=== PATIENT | male | born 1930 | race Caucasian/White ===

== ENCOUNTER 2017-04-04 08:30 | Outpatient (CLI) | payer MEDICARE ==
[2017-04-04 09:49] LABS: Hemoglobin 13.3 g/dL (14.0-18.0); Mean Corpuscular HGB CONC 33.2 g/dL (32.0-36.0); Mean Corpuscular Hemoglobin 33.4 pg (27.0-31.0); Mean Platelet Volume 8.3 fL (7.4-10.4); Platelet Count 180 thou/uL (130-400); RBC Distribution Width 11.6 % (11.5-14.5); Red Blood Cell (RBC) Count 3.99 mill/uL (4.70-6.10)
[2017-04-04 10:03] LABS: INR-International Normal Ratio 1.1; PTT 31.7 SEC (22.9-36.1)
[2017-04-04 10:09] LABS: ALT (SGPT) 16 U/L (8-55); AST (SGOT) 18 U/L (5-34); Albumin 3.8 g/dL (3.4-4.8); Alkaline Phosphatase 76 U/L (40-150); Anion Gap 13 mmol/L (10-20); BUN (Urea Nitrogen) 28 mg/dL (8.4-25.7); Bilirubin, Total 0.7 mg/dL (0.2-1.2); Calc. Creatinine Clearance 0 mL/min (70-130); Calcium 8.7 mg/dL (7.8-10.44); Carbon Dioxide 23 mmol/L (23-31); Chloride 102 mmol/L (98-107); Estimated GFR-MDRD 76; Globulin 2.3 g/dL (2.4-3.5); Glucose 101 mg/dL (83-110); Potassium 5.1 mmol/L (3.5-5.1); Protein, Total 6.1 g/dL (5.8-8.1); Sodium 133 mmol/L (136-145)
--- NOTE | 2017-04-05 07:17 | EKG ---
Test Reason : Blood Pressure : / mmHG Vent. Rate : 063 BPM Atrial Rate : 063 BPM P-R Int : 226 ms QRS Dur : 112 ms QT Int : 414 ms P-R-T Axes : 069 -57 044 degrees QTc Int : 423 ms Sinus rhythm with 1st degree A-V block Left anterior fascicular block Abnormal ECG When compared with ECG of 18-MAY-2015 13:43, No significant change was found Confirmed by MISTI MINA, DR. SCarrie ([id number]) on 04/05/2017 7:16:59 AM Referred By: NAIMA Confirmed By:DR. Tj CHAPPELL MD
== END 2017-04-04 08:31 | disposition home or self-care (01) ==
LOC: LABBT 08:30
PROVIDERS: ATTEND Internal Medicine Cardiovascular Disease
DX: Z01.810 Encounter for preprocedural cardiovascular examination (principal); R07.9 Chest pain, unspecified
CPT/HCPCS: 80053; 85027; 85610; 85730; 93005; 93010

== ENCOUNTER → 2017-04-08 | Day surgery (SDC) | payer MEDICARE ==
[2017-04-04 08:56] VITALS: BMI 27.4
[~2017-04-08] MED LIST: Diazepam 5 MG TAB ONE; Heparin 0 ML ONE; Promethazine 25 MG TAB ONE; Sodium Chloride 0.9% 1,000 ML IV SCH
[2017-04-08 07:10] LABS: Cardiac Risk 2.6 (Less than 4.5)
== END ==
LOC: CCL 05:55
PROVIDERS: ATTEND Internal Medicine Cardiovascular Disease
DX: R07.89 Other chest pain (principal); I25.10 Atherosclerotic heart disease of native coronary artery without angina pectoris; G47.30 Sleep apnea, unspecified; I48.1 Persistent atrial fibrillation; I10 Essential (primary) hypertension; Z99.89 Dependence on other enabling machines and devices; Z90.49 Acquired absence of other specified parts of digestive tract; Z98.890 Other specified postprocedural states
CPT/HCPCS: 76942; 80061; 93455; 93567; C1769; J1644

== ENCOUNTER 2017-09-18 13:23 | Emergency (ER) | payer MEDICARE ==
[2017-09-18] MEDS ORDERED: Bacitracin Zinc 1 Packet ONE (14:04)
--- NOTE | 2017-09-18 14:09 | CT ---
CT BRAIN WITHOUT CONTRAST: Comparison: None. History: Fall. Head trauma. Tripped over a dog at home. Patient had no severe trauma to the forehead. Technique: Multiple contiguous axial images were obtained in a CT of the brain without contrast. FINDINGS: The brain is normal in morphology and attenuation without focal lesions or confluent areas of infarct ion. There is no evidence of hydrocephalus, intracranial hemorrhage or extraaxial fluid collection. Soft tissue swelling is seen in the right frontal scalp. The underlying calvarium is unremarkable. Th e visualized paranasal sinuses and mastoid air cells are well aerated. IMPRESSION: No evidence of acute intracranial abnormality. POS: [facility]
== END 2017-09-18 14:12 | disposition home or self-care (01) ==
LOC: SCSER 13:23
DX: S09.90XA Unspecified injury of head, initial encounter (principal); S61.411A Laceration without foreign body of right hand, initial encounter; S00.81XA Abrasion of other part of head, initial encounter; S00.31XA Abrasion of nose, initial encounter; K21.9 Gastro-esophageal reflux disease without esophagitis; W01.0XXA Fall on same level from slipping, tripping and stumbling without subsequent striking against object, initial encounter
CPT/HCPCS: 70450

== ENCOUNTER 2018-07-12 22:50 | Inpatient (IN) | payer MEDICARE, OTHER ==
[2018-07-12] MEDS ORDERED: Ondansetron PF 4 MG/2 ML Vial ONE (23:12)
[2018-07-12] MEDS ORDERED: Acetaminophen 500 MG TAB ONE (23:14)
--- NOTE | 2018-07-12 23:42 | RAD ---
PA AND LATERAL CHEST: History: Fever. Right breast cancer. FINDINGS: Comparison is made with exam of 12-08-14. There are changes of median sternotomy. The heart size is enlarged. The aorta is tortuous. The lungs are expanded without lobar consolidation, pneumothorax, demetra pulmonary edema or pleural effusions. T here are degenerative changes in the acromioclavicular joints. IMPRESSION: No acute process. POS: [facility]
[2018-07-12 23:43] LABS: ALT (SGPT) 19 U/L (8-55); AST (SGOT) 15 U/L (5-34); Alkaline Phosphatase 81 U/L (40-150); Anion Gap 14 mmol/L (10-20); BUN (Urea Nitrogen) 27 mg/dL (8.4-25.7); Calc. Creatinine Clearance 0 mL/min (70-130); Calcium 9.2 mg/dL (7.8-10.44); Carbon Dioxide 22 mmol/L (23-31); Chloride 100 mmol/L (98-107); Estimated GFR-MDRD 59; Glucose 121 mg/dL (83-110); Lipase 19 U/L (8-78); Potassium 4.3 mmol/L (3.5-5.1); Sodium 132 mmol/L (136-145)
[2018-07-12 23:44] LABS: #Basophils 0.1 thou/uL (0.0-0.2); #Lymphocytes 0.8 thou/uL (1.20-3.40); #Monocytes 0.7 thou/uL (0.11-0.59); #Neutrophils 7.8 thou/uL (1.40-6.50); %Basophils 0.7 % (0.0-1.0); %Eosinophils 0.1 % (0.0-10.0); %Lymphocytes 8.6 % (21.0-51.0); %Monocytes 7.2 % (0.0-10.0); %Neutrophils 83.4 % (42.0-75.0); Hemoglobin 12.3 g/dL (14.0-18.0); MDiff Complete? YES; Macrocytosis SLIGHT = 6-15 cells (100X) (0-5/hpf); Mean Corpuscular HGB CONC 34.9 g/dL (32.0-36.0); Mean Corpuscular Hemoglobin 34.6 pg (27.0-31.0); Mean Corpuscular Volume 99.1 fL (78.0-98.0); Mean Platelet Volume 7.8 fL (7.4-10.4); Platelet Count 142 thou/uL (130-400); RBC Distribution Width 11.9 % (11.5-14.5); Red Blood Cell (RBC) Count 3.56 mill/uL (4.70-6.10); White Blood Cell (WBC) Count 9.4 thou/uL (4.8-10.8)
[2018-07-12 23:48] LABS: Bilirubin Negative (Negative); Blood, Urine Trace (Negative); Clarity Slightly Cloudy (Clear); Glucose, Urine (Dipstick) Negative (Negative); Leukocyte Negative (Negative); Nitrite Negative (Negative); Protein, Urine (Dipstick) 30 mg/dL (Neg-Trace)
[2018-07-12 23:59] LABS: CKMB 1.1 ng/mL (0-6.6)
[2018-07-12] MEDS ORDERED: Aspirin 325 MG TAB ONE (23:59)
[2018-07-13 00:01] LABS: Bacteria/HPF None Seen HPF (None Seen); Hyaline Casts/LPF NONE SEEN LPF (0-3 Hyaline); Squamous Epithelial 0-3 HPF (0-3); WBC/HPF 0-3 HPF (0-3)
[2018-07-13] MEDS ORDERED: Sodium Chloride 0.9% 100 ML ONE (01:25)
[2018-07-13] MEDS ORDERED: Piperacillin/Tazobactam 3.375 GM VIAL ONE (01:25)
[2018-07-13 01:49] LABS: Troponin I 0.025 ng/mL (< 0.028)
[2018-07-13] MEDS ORDERED: Ondansetron ODT 4 MG TAB SL PRN (03:12)
[2018-07-13] MEDS ORDERED: Ondansetron PF 4 MG/2 ML Vial IVP PRN (03:12)
[2018-07-13 03:25] VITALS: BMI 30.3
[2018-07-13 05:02] LABS: Troponin I 0.022 ng/mL (< 0.028)
[2018-07-13] MEDS: Acetaminophen 325 MG TAB PO PRN ×4 (05:47→20:35)
[2018-07-13] MEDS ORDERED: Piperacillin/Tazobactam 3.375 GM in Sodium Chloride 0.9% 100 ML IVPB SCH (08:00)
[2018-07-13] MEDS ORDERED: Bisacodyl 5 MG TAB PO PRN (11:16)
[2018-07-13] MEDS ORDERED: Vancomycin HCl 1 GM in Premix Bag 1 BAG IVPB SCH (11:30)
--- NOTE | 2018-07-13 12:48 | HP ---
PRIMARY CARE PROVIDER: Dr. Jeff Thakur. CHIEF COMPLAINT: Fever. HISTORY OF PRESENT ILLNESS: Mr. James is a pleasant 88-year-old gentleman, who was seen at [facility] on July 13 2018, following transfer from [facility] Emergency Room. He reports that he was diagnosed with right foot infection approximately 10 days ago. He was started on an antibiotic. Emergency room records state that he was started on Bactrim. The patient thinks he may have been on amoxicillin. He reports completing eight days of treatment, out of a 10-day course. Yesterday, he started having fevers. He also felt nauseous twice, but did not vomit. He felt generally weak. He denies any chest pain or palpitations. He denies any lightheadedness. He presented to the emergency room because of fevers. In the emergency room, he was diagnosed with sepsis and started on vancomycin and Zosyn, and admitted to the hospital. He denies any cough or shortness of breath. REVIEW OF SYSTEMS: All other systems reviewed and found to be negative. PAST MEDICAL HISTORY: 1. Obstructive sleep apnea syndrome. 2. Gastroesophageal reflux disease. 3. Restless legs syndrome. 4. Right-sided breast cancer. PAST SURGICAL HISTORY: Right mastectomy, transurethral resection of prostate, appendectomy, cholecystectomy, coronary artery bypass graft. SOCIAL HISTORY: The patient denies tobacco use, alcohol use, or recreational drug use. ALLERGIES: MYCINS. CODE STATUS: I discussed his code status. He is DNAR. CURRENT MEDICATIONS: 1. Pramipexole 1.5 mg daily. 2. Aspirin 325 mg daily. 3. Atorvastatin 20 mg daily. 4. Metoprolol tartrate 50 mg 2 times a day. 5. Lisinopril 5 mg daily. 6. Melatonin 10 mg daily. 7. Calcipotriene-betamethasone topical as needed.. 8. Alclometasone cream as needed. 9. Culturelle one capsule daily. 10. Isosorbide mononitrate 60 mg daily. 11. Bactrim DS one tablet two times a day. 12. Simvastatin 40 mg at bedtime. 13. Toprol-XL 25 mg 3 times a day. 14. Mirapex 0.5 mg daily. FAMILY HISTORY: No family history of premature coronary artery disease. PHYSICAL EXAMINATION: GENERAL: On examination, Mr. James is awake and alert, not in acute distress. He is obese, with a BMI of 30.3. VITAL SIGNS: He has a blood pressure of 154/67, pulse 87, respiratory rate 16, and oxygen saturation 93% on room air. He is currently afebrile. In the emergency room, he had temperature of 102.6 degrees Fahrenheit and pulse of 95. EYES: No scleral icterus, no conjunctival pallor. ENT: Dry mucosal membranes. No oropharyngeal erythema or exudates. NECK: Supple, nontender, trachea is midline. RESPIRATORY: Accessory muscles of breathing are not active. Chest wall movements are symmetric bilaterally. Lungs are clear to auscultation without wheeze, rhonchi, or crepitations. CARDIOVASCULAR: S1 and S2 are heard, regular. Peripheral pulses palpable. No carotid bruit. No pericardial rub. ABDOMEN: Soft, nontender, bowel sounds are heard, no hepatomegaly, no splenomegaly. NEUROLOGIC: Cranial nerves 2 through 12 intact, deep tendon reflexes 2+. MUSCULOSKELETAL: Power is 5/5 in all 4 extremities. SKIN: Small area of faint erythema over the right dodge, no elevated warmth. No neurovascular deficits in that extremity. LYMPHATIC: No cervical lymphadenopathy. PSYCHIATRIC: Normal mood, normal affect, the patient is oriented to person, place, and time. LABORATORY DATA: Mr. James's labs and investigations were reviewed. I reviewed his electrocardiogram, which shows normal sinus rhythm, no ST changes to suggest an acute coronary syndrome. I also reviewed his chest x-ray, which does not show any pulmonary infiltrates. He has normal white count, elevated neutrophil percentage of 83.4, macrocytic anemia with hemoglobin 12.3, normal platelet count. Hyponatremia with sodium 132, normal potassium, elevated blood urea nitrogen of 27, normal creatinine, unremarkable liver profile, normal lipase, BNP elevated at 274, troponin-I initially in the indeterminate range at 0.029, normalizing to 0.022, normal lactic acid level of 1.0, and urinalysis, that is negative for nitrite and leukocyte esterase. ASSESSMENT AND PLAN: Mr. James is a pleasant 88-year-old gentleman, who was seen at [facility] on July 13, 2018. His problem list includes: 1. Sepsis: Mr. James is presenting with sepsis, source unclear at this time. He was recently treated with Bactrim. He will be admitted to the hospital for further management. He has been started on vancomycin and Zosyn, which I will continue. Please note that his group A strep screen was negative. His influenza screen was negative as well. He has recently been treated with cellulitis and it does not appear that he has significant area of cellulitis at this time. 2. Coronary artery disease: Stable. The patient denies any chest pain. 3. Gastroesophageal reflux disease: Stable. 4. Restless legs syndrome: We will continue home medications including Mirapex. 5. Hyponatremia: Mild, likely asymptomatic, we will recheck. 6. Generalized weakness: We will evaluate his mobility after he receives antibiotics. Many thanks for allowing me to participate in your patient's care. Please feel free to contact me with any questions or concerns. LEVEL OF RISK: High. LEVEL OF COMPLEXITY: High. Job ID: [id number] [facility]ATR[facility] CENTERAdriano
[2018-07-13] MEDS: Piperacillin/Tazobactam 3.375 GM in Sodium Chloride 0.9% 100 ML IVPB SCH ×2 (15:24→20:35)
[2018-07-13] MEDS ORDERED: Hydrocortisone 1% Cream 30 GM TUBE TOP PRN (16:00)
[2018-07-13] MEDS ORDERED: Betamethasone Val 0.1% OINT 15 GM TUBE TOP PRN (16:00)
[2018-07-13] MEDS: Pramipexole Di-HCl 1 MG TAB PO SCH (16:08)
[2018-07-13] MEDS: Vancomycin HCl 1.5 GM in Sodium Chloride 0.9% 250 ML 300 ML IVPB SCH (17:04)
[2018-07-13] MEDS: Metoprolol Tartrate 50 MG TAB PO SCH (20:35)
[2018-07-13] MEDS: Melatonin 3 MG TAB PO SCH (20:35)
[2018-07-13] MEDS: Atorvastatin Calcium 20 MG TAB PO SCH (20:35)
[2018-07-13] MEDS ORDERED: Pramipexole Di-HCl 1 MG TAB PO SCH (21:00)
[2018-07-13] MEDS ORDERED: Labetalol HCl 100 MG/20 ML VIAL SLOW IVP PRN (21:13)
[2018-07-14] MEDS: Acetaminophen 325 MG TAB PO PRN (00:01)
[2018-07-14] MEDS: Piperacillin/Tazobactam 3.375 GM in Sodium Chloride 0.9% 100 ML IVPB SCH ×4 (03:49→22:09)
[2018-07-14 06:35] LABS: #Lymphocytes 0.4 thou/uL (1.20-3.40); #Monocytes 0.6 thou/uL (0.11-0.59); #Neutrophils 6.4 thou/uL (1.40-6.50); %Basophils 0.6 % (0.0-1.0); %Eosinophils 0.4 % (0.0-10.0); %Lymphocytes 5.6 % (21.0-51.0); %Monocytes 8.2 % (0.0-10.0); %Neutrophils 85.3 % (42.0-75.0); Hemoglobin 10.8 g/dL (14.0-18.0); Mean Corpuscular HGB CONC 32.4 g/dL (32.0-36.0); Mean Corpuscular Hemoglobin 33.5 pg (27.0-31.0); Mean Platelet Volume 8.9 fL (7.4-10.4); Platelet Count 148 thou/uL (130-400); Red Blood Cell (RBC) Count 3.22 mill/uL (4.70-6.10); White Blood Cell (WBC) Count 7.5 thou/uL (4.8-10.8)
[2018-07-14 06:57] LABS: Anion Gap 12 mmol/L (10-20); BUN (Urea Nitrogen) 22 mg/dL (8.4-25.7); Calc. Creatinine Clearance 62 mL/min (70-130); Carbon Dioxide 20 mmol/L (23-31); Chloride 102 mmol/L (98-107); Estimated GFR-MDRD 63; Glucose 112 mg/dL (83-110); Potassium 4.3 mmol/L (3.5-5.1); Sodium 130 mmol/L (136-145)
[2018-07-14] MEDS: Lisinopril 5 MG TAB PO SCH (09:03)
[2018-07-14] MEDS: Lactinex Tablet PO SCH (09:03)
[2018-07-14] MEDS: Aspirin 325 mg Enteric Coated Tablet PO SCH (09:03)
[2018-07-14] MEDS: Metoprolol Tartrate 50 MG TAB PO SCH ×2 (09:04→21:01)
--- NOTE | 2018-07-14 13:44 | PDOC.PN ---
- Subjective Encounter Start Date: 07/14/18 Encounter Start Time: 08:00 Pt seen for followup re: sepsis. Feels better. Ambulating in hallways. - Objective Resuscitation Status - Order Detail: 07/13/18 11:16 Resuscitation Status Routine Resuscitation Status: DNAR: NO Resuscitation Discussed with: patient MAR Reviewed: Yes Vital Signs & Weight: Vital Signs (12 hours) Temp Pulse Resp BP BP BP Pulse Ox 07/14/18 11:43 99.1 F 70 16 140/60 93 L 07/14/18 09:03 74 140/57 L 07/14/18 08:00 93 L 07/14/18 07:45 98.4 F 74 16 140/57 L 92 L 07/14/18 04:05 99.2 F 76 16 150/66 H 92 L Weight Weight 205 lb 6.4 oz I&O: 07/13/18 07/14/18 07/15/18 06:59 06:59 06:59 Intake Total 400 2450 Balance 400 2450 Result Diagrams: 07/14/18 06:13 07/14/18 06:13 Additional Labs: labs reviewed by me Phys Exam - Physical Examination Obese HEENT: moist MMs, sclera anicteric, oral pharynx no lesions, 2+ tonsils Neck: no nodes, no JVD, supple, full ROM Respiratory: clear to auscultation bilateral Cardiovascular: RRR, no rub S1, s2 Gastrointestinal: soft, non-tender, no distention, positive bowel sounds Neurological: moves all 4 limbs Psychiatric: normal affect, A&O x 3 Deviation from normal: RLE rash much better Dx/Plan (1) Sepsis Code(s): A41.9 - SEPSIS, UNSPECIFIED ORGANISM Status: Acute Comment: Improving. Continue IV vancomycin and Zosyn, await cultures (2) CAD (coronary artery disease) Code(s): I25.10 - ATHSCL HEART DISEASE OF [place] CORONARY ARTERY W/O ANG PCTRS Status: Chronic Comment: stable (3) GERD (gastroesophageal reflux disease) Code(s): K21.9 - GASTRO-ESOPHAGEAL REFLUX DISEASE WITHOUT ESOPHAGITIS Status: Chronic Comment: stable (4) RLS (restless legs syndrome) Status: Chronic Comment: stable - Plan plan discussed w/ family, continue antibiotics, out of bed/ambulate * . Review of Systems - Review of Systems Constitutional: fever. negative: chills, sweats, weakness, malaise Cardiovascular: negative: chest pain, palpitations, orthopnea, paroxysmal nocturnal dyspnea, edema, light headedness Gastrointestinal: negative: Nausea, Vomiting, Abdominal Pain, Diarrhea, Constipation, Melena, Hematochezia Genitourinary: negative: Dysuria, Frequency, Incontinence, Hematuria, Retention Skin: Rash. negative: Lesions, Glenn, Bruising - Medications/Allergies Allergies/Adverse Reactions: Allergies Allergy/AdvReac Type Severity Reaction Status Date / Time Mycins Allergy Mild digestive Uncoded 07/13/18 03:37 upset- diarrhea Medications: Current Medications Acetaminophen (Tylenol) 650 mg PO Q4H PRN PRN Reason: Headache/Fever/Mild Pain (1-3) Last Admin: 07/14/18 00:01 Dose: 650 mg Acidophilus (Floranex) 1 tab PO DAILY [facility] Last Admin: 07/14/18 09:03 Dose: 1 tab Aspirin (Ecotrin) 325 mg PO DAILY [facility] Last Admin: 07/14/18 09:03 Dose: 325 mg Atorvastatin Calcium (Lipitor) 20 mg PO HS [facility] Last Admin: 07/13/18 20:35 Dose: 20 mg Betamethasone Valerate (Valisone 0.1% Ointment) 0 gm TOP BID PRN PRN Reason: PSORIASIS Bisacodyl (Dulcolax) 10 mg PO DAILYPRN PRN PRN Reason: Constipation Hydrocortisone/Aloe (Hydrocortisone 1% Cream) 0 gm TOP DAILYPRN PRN PRN Reason: PSORIASIS Piperacillin Sod/Tazobactam (Sod 3.375 gm/ Sodium Chloride) 100 mls @ 200 mls/ hr IVPB 0300,0900,1500,2100 [facility] Last Admin: 07/14/18 08:57 Dose: 100 mls Vancomycin HCl 1.5 gm/ Sodium (Chloride) 300 mls @ 200 mls/hr IVPB 1800 [facility] Last Admin: 07/13/18 17:04 Dose: 300 mls Isosorbide Mononitrate (Imdur Er) 30 mg PO DAILY [facility] Last Admin: 07/14/18 09:03 Dose: 30 mg Labetalol HCl (Normodyne) 10 mg SLOW IVP Q4H PRN PRN Reason: SBP>170 OR DBP>100 Lisinopril (Zestril) 5 mg PO DAILY [facility] Last Admin: 07/14/18 09:03 Dose: 5 mg Melatonin (Melatonin) 9 mg PO HS [facility] Last Admin: 07/13/18 20:35 Dose: 9 mg Metoprolol Tartrate (Lopressor) 50 mg PO BID [facility] Last Admin: 07/14/18 09:04 Dose: 50 mg Miscellaneous Medication (Pharmacy To Dose) 1 each IVPB PRN PRN PRN Reason: Pharmacy to dose Pramipexole Dihydrochloride (Mirapex) 1.5 mg PO 1700 [facility] Last Admin: 07/13/18 16:08 Dose: 1.5 mg Ranolazine (Ranexa) 1,000 mg PO BID [facility] Last Admin: 07/14/18 09:03 Dose: 1,000 mg
[2018-07-14] MEDS: Pramipexole Di-HCl 1 MG TAB PO SCH (16:58)
[2018-07-14 17:15] LABS: Vancomycin, Trough 6.9 ug/mL
[2018-07-14] MEDS: Vancomycin HCl 1.5 GM in Sodium Chloride 0.9% 250 ML 300 ML IVPB SCH (18:37)
[2018-07-14] MEDS: Melatonin 3 MG TAB PO SCH (21:01)
[2018-07-14] MEDS: Atorvastatin Calcium 20 MG TAB PO SCH (21:01)
[2018-07-15] MEDS: Piperacillin/Tazobactam 3.375 GM in Sodium Chloride 0.9% 100 ML IVPB SCH ×2 (03:42→08:53)
[2018-07-15] MEDS ORDERED: Vancomycin HCl 1.25 GM in Sodium Chloride 0.9% 250 ML 250 ML IVPB SCH (06:00)
[2018-07-15 06:48] LABS: #Eosinphils 0.1 thou/uL (0.0-0.7); #Lymphocytes 0.6 thou/uL (1.20-3.40); #Monocytes 0.5 thou/uL (0.11-0.59); #Neutrophils 3.9 thou/uL (1.40-6.50); %Eosinophils 1.7 % (0.0-10.0); %Lymphocytes 11.1 % (21.0-51.0); %Monocytes 10.2 % (0.0-10.0); %Neutrophils 77.1 % (42.0-75.0); Hemoglobin 10.6 g/dL (14.0-18.0); Mean Corpuscular Hemoglobin 35.4 pg (27.0-31.0); Mean Platelet Volume 7.7 fL (7.4-10.4); Platelet Count 141 thou/uL (130-400); RBC Distribution Width 12.2 % (11.5-14.5)
[2018-07-15 07:11] LABS: Anion Gap 11 mmol/L (10-20); BUN (Urea Nitrogen) 20 mg/dL (8.4-25.7); Calc. Creatinine Clearance 78 mL/min (70-130); Carbon Dioxide 19 mmol/L (23-31); Chloride 102 mmol/L (98-107); Estimated GFR-MDRD 82; Glucose 95 mg/dL (83-110); Sodium 128 mmol/L (136-145)
[2018-07-15] MEDS: Lactinex Tablet PO SCH (08:53)
[2018-07-15] MEDS: Aspirin 325 mg Enteric Coated Tablet PO SCH (08:53)
[2018-07-15] MEDS: Metoprolol Tartrate 50 MG TAB PO SCH ×2 (08:53→20:44)
[2018-07-15] MEDS: Lisinopril 5 MG TAB PO SCH (08:53)
[2018-07-15] MEDS ORDERED: Saccharomyces boulardii 250 MG CAP PO SCH (10:00)
--- NOTE | 2018-07-15 17:26 | PDOC.PN ---
- Subjective Encounter Start Date: 07/15/18 Encounter Start Time: 08:20 Pt sen for followup re: diarrhea. Says he feels better. Has diarrhea today. - Objective Resuscitation Status - Order Detail: 07/13/18 11:16 Resuscitation Status Routine Resuscitation Status: DNAR: NO Resuscitation Discussed with: patient AMARI Reviewed: Yes Vital Signs & Weight: Vital Signs (12 hours) Temp Pulse Resp BP BP Pulse Ox 07/15/18 16:00 98.2 F 69 18 148/71 H 94 L 07/15/18 11:46 98.7 F 69 18 144/71 H 95 07/15/18 08:53 73 145/87 H 07/15/18 08:50 93 L 07/15/18 08:00 99.7 F H 73 18 145/87 H 93 L Weight Weight 205 lb 6.4 oz I&O: 07/14/18 07/15/18 07/16/18 06:59 06:59 06:59 Intake Total 2450 2250 Balance 2450 2250 Result Diagrams: 07/15/18 06:01 07/15/18 06:01 Additional Labs: Labs reviewed by me Phys Exam - Physical Examination Obese HEENT: moist MMs Neck: no JVD Respiratory: clear to auscultation bilateral Cardiovascular: RRR Gastrointestinal: non-tender, positive bowel sounds Neurological: moves all 4 limbs Psychiatric: normal affect Dx/Plan (1) Diarrhea Code(s): R19.7 - DIARRHEA, UNSPECIFIED Status: Acute Comment: Check stool for C. difficile, start Florastor (2) CAD (coronary artery disease) Code(s): I25.10 - ATHSCL HEART DISEASE OF [place] CORONARY ARTERY W/O ANG PCTRS Status: Chronic Comment: stable (3) GERD (gastroesophageal reflux disease) Code(s): K21.9 - GASTRO-ESOPHAGEAL REFLUX DISEASE WITHOUT ESOPHAGITIS Status: Chronic Comment: stable (4) RLS (restless legs syndrome) Status: Chronic Comment: stable (5) Sepsis Code(s): A41.9 - SEPSIS, UNSPECIFIED ORGANISM Status: Resolved Comment: All cultures negative, discontinue antibiotics and observe - Plan * . Review of Systems - Review of Systems Constitutional: negative: fever, chills, sweats, weakness, malaise Gastrointestinal: Diarrhea. negative: Nausea, Vomiting, Abdominal Pain, Constipation, Melena, Hematochezia - Medications/Allergies Allergies/Adverse Reactions: Allergies Allergy/AdvReac Type Severity Reaction Status Date / Time Mycins Allergy Mild digestive Uncoded 07/13/18 03:37 upset- diarrhea Medications: Current Medications Acetaminophen (Tylenol) 650 mg PO Q4H PRN PRN Reason: Headache/Fever/Mild Pain (1-3) Last Admin: 07/14/18 00:01 Dose: 650 mg Acidophilus (Floranex) 1 tab PO DAILY [facility] Last Admin: 07/15/18 08:53 Dose: 1 tab Aspirin (Ecotrin) 325 mg PO DAILY [facility] Last Admin: 07/15/18 08:53 Dose: 325 mg Atorvastatin Calcium (Lipitor) 20 mg PO HS [facility] Last Admin: 07/14/18 21:01 Dose: 20 mg Betamethasone Valerate (Valisone 0.1% Ointment) 0 gm TOP BID PRN PRN Reason: PSORIASIS Bisacodyl (Dulcolax) 10 mg PO DAILYPRN PRN PRN Reason: Constipation Hydrocortisone/Aloe (Hydrocortisone 1% Cream) 0 gm TOP DAILYPRN PRN PRN Reason: PSORIASIS Isosorbide Mononitrate (Imdur Er) 30 mg PO DAILY [facility] Last Admin: 07/15/18 08:53 Dose: 30 mg Labetalol HCl (Normodyne) 10 mg SLOW IVP Q4H PRN PRN Reason: SBP>170 OR DBP>100 Lisinopril (Zestril) 5 mg PO DAILY [facility] Last Admin: 07/15/18 08:53 Dose: 5 mg Melatonin (Melatonin) 9 mg PO HS [facility] Last Admin: 07/14/18 21:01 Dose: 9 mg Metoprolol Tartrate (Lopressor) 50 mg PO BID [facility] Last Admin: 07/15/18 08:53 Dose: 50 mg Pramipexole Dihydrochloride (Mirapex) 1.5 mg PO 1700 [facility] Last Admin: 07/14/18 16:58 Dose: 1.5 mg Ranolazine (Ranexa) 1,000 mg PO BID [facility] Last Admin: 07/15/18 08:53 Dose: 1,000 mg Saccharomyces Boulardii (Florastor) 250 mg PO Q24H [facility] Last Admin: 07/15/18 11:56 Dose: 250 mg
[2018-07-15] MEDS: Pramipexole Di-HCl 1 MG TAB PO SCH (17:30)
[2018-07-15] MEDS: Melatonin 3 MG TAB PO SCH (20:44)
[2018-07-15] MEDS: Atorvastatin Calcium 20 MG TAB PO SCH (20:44)
[2018-07-16 06:41] LABS: #Eosinphils 0.1 thou/uL (0.0-0.7); #Lymphocytes 0.6 thou/uL (1.20-3.40); #Monocytes 0.4 thou/uL (0.11-0.59); #Neutrophils 2.9 thou/uL (1.40-6.50); %Basophils 0.4 % (0.0-1.0); %Eosinophils 2.8 % (0.0-10.0); %Lymphocytes 14.6 % (21.0-51.0); %Monocytes 10.6 % (0.0-10.0); %Neutrophils 71.6 % (42.0-75.0); Hemoglobin 11.2 g/dL (14.0-18.0); Mean Corpuscular HGB CONC 34.4 g/dL (32.0-36.0); Mean Corpuscular Hemoglobin 34.9 pg (27.0-31.0); Mean Platelet Volume 7.7 fL (7.4-10.4); Platelet Count 163 thou/uL (130-400); RBC Distribution Width 11.9 % (11.5-14.5); Red Blood Cell (RBC) Count 3.22 mill/uL (4.70-6.10)
[2018-07-16 07:04] LABS: Anion Gap 13 mmol/L (10-20); BUN (Urea Nitrogen) 18 mg/dL (8.4-25.7); Calc. Creatinine Clearance 84 mL/min (70-130); Calcium 8.3 mg/dL (7.8-10.44); Carbon Dioxide 18 mmol/L (23-31); Chloride 101 mmol/L (98-107); Estimated GFR-MDRD 89; Glucose 94 mg/dL (83-110); Sodium 128 mmol/L (136-145)
[2018-07-16] MEDS: Lactinex Tablet PO SCH (09:37)
[2018-07-16] MEDS: Lisinopril 5 MG TAB PO SCH (09:37)
[2018-07-16] MEDS: Metoprolol Tartrate 50 MG TAB PO SCH (09:37)
[2018-07-16] MEDS: Aspirin 325 mg Enteric Coated Tablet PO SCH (09:37)
[2018-07-16 11:57] VITALS: BP 123/65; TEMP 97.9
--- NOTE | 2018-07-17 01:25 | DIS ---
DATE OF ADMISSION: 07/13/2018 DATE OF DISCHARGE: 07/16/2018 PRIMARY CARE PROVIDER: Jeff Thakur MD. DISCHARGE DIAGNOSES: 1. Sepsis. 2. Most likely viral etiology for sepsis. 3. Diarrhea, resolved. CONDITION OF PATIENT ON THE DAY OF DISCHARGE: Patient on the day of discharge: Stable. I assessed Mr. James on the day of discharge. He denies any chest pain or shortness of breath. Vital signs are stable. S1 and S2 are heard, regular. Lungs are clear to auscultation bilaterally. DISCHARGE MEDICATIONS: No change was made to his pre-admission home medications as dictated on my history and physical note dated July 13, 2018. HOSPITAL COURSE: Mr. James is a pleasant 88-year-old gentleman, who was admitted to [facility] on July 13, 2018, for sepsis. He was admitted to the hospital and treated with intravenous antibiotics. Preliminary blood cultures were negative at 48 hours, the patient is advised to follow up with his primary care provider for final blood culture report. Group A Streptococcus culture from the throat did not show any group A Streptococcus isolate. Final urine culture did not show any growth at 48 hours. Influenza screen was negative. Respiratory virus panel was also negative. He had diarrhea towards the end of this hospitalization. Clostridium difficile toxin test was negative. He improved with probiotics. Antibiotics were discontinued and the patient was observed in the hospital for one day. He did not have any fevers. He is being discharged home in a stable condition. On the day of discharge, he has sodium 128. He has chronic hyponatremia and has been advised to have his sodium level rechecked through his primary care provider's office. On the day of discharge, his creatinine is 0.82, white count 4000, hemoglobin 11.2, and platelet count 163,000. His TSH was normal at 1.394. Many thanks for allowing me to participate in your patient's care. Please feel free to contact me with any questions or concerns. DISCHARGE DESTINATION: Home. TIME SPENT: Total amount of time spent coordinating this discharge: 32 minutes. Job ID: [id number]
== END 2018-07-16 12:45 | disposition home or self-care (01) | DRG 872 ==
LOC: SCSER 22:50 → SURG A 07-13 01:25
PROVIDERS: ADMIT Hospitalist; ATTEND Hospitalist
DX: A41.9 Sepsis, unspecified organism (principal); E87.1 Hypo-osmolality and hyponatremia; Z66 Do not resuscitate; K21.9 Gastro-esophageal reflux disease without esophagitis; G47.33 Obstructive sleep apnea (adult) (pediatric); I25.10 Atherosclerotic heart disease of native coronary artery without angina pectoris; G25.81 Restless legs syndrome; E66.9 Obesity, unspecified; R19.7 Diarrhea, unspecified; Z68.30 Body mass index [BMI] 30.0-30.9, adult; Z95.1 Presence of aortocoronary bypass graft; Z85.3 Personal history of malignant neoplasm of breast; Z90.49 Acquired absence of other specified parts of digestive tract; Z88.8 Allergy status to other drugs, medicaments and biological substances; Z79.899 Other long term (current) drug therapy; Z79.82 Long term (current) use of aspirin
CPT/HCPCS: 36415; 71046; 80048; 80053; 80202; 81003; 81015; 82553; 83605; 83690; 83880; 84443; 84484; 85025; 87040; 87081; 87086; 87324; 87430; 87449; 87633; 87804; 93005; 96361; 96365; 96375; J2405; J2543; J3370; J3490; J7050

== ENCOUNTER 2019-11-15 18:37 | Inpatient (IN) | payer MEDICARE, OTHER ==
[2019-11-15 19:22] LABS: #Lymphocytes 0.9 thou/uL (1.20-3.40); #Monocytes 0.3 thou/uL (0.11-0.59); #Neutrophils 3.3 thou/uL (1.40-6.50); %Basophils 0.5 % (0.0-1.0); %Lymphocytes 19.2 % (21.0-51.0); %Monocytes 6.9 % (0.0-10.0); %Neutrophils 72.5 % (42.0-75.0); Hemoglobin 10.4 g/dL (14.0-18.0); Mean Corpuscular HGB CONC 33.8 g/dL (32.0-36.0); Mean Corpuscular Hemoglobin 36.1 pg (27.0-31.0); Mean Platelet Volume 7.9 fL (7.4-10.4); Platelet Count 159 thou/uL (130-400); RBC Distribution Width 11.3 % (11.5-14.5); Red Blood Cell (RBC) Count 2.89 mill/uL (4.70-6.10); White Blood Cell (WBC) Count 4.6 thou/uL (4.8-10.8)
[2019-11-15 19:42] LABS: ALT (SGPT) 12 U/L (8-55); AST (SGOT) 13 U/L (5-34); Albumin 3.9 g/dL (3.4-4.8); Alkaline Phosphatase 66 U/L (40-110); Anion Gap 14 mmol/L (10-20); BUN (Urea Nitrogen) 52 mg/dL (8.4-25.7); Bilirubin, Total 0.5 mg/dL (0.2-1.2); Calc. Creatinine Clearance 0 mL/min (70-130); Calcium 8.5 mg/dL (7.8-10.44); Carbon Dioxide 20 mmol/L (23-31); Chloride 108 mmol/L (98-107); Estimated GFR-MDRD 39; Globulin 2.6 g/dL (2.4-3.5); Glucose 128 mg/dL (83-110); Potassium 5.8 mmol/L (3.5-5.1); Protein, Total 6.5 g/dL (5.8-8.1); Sodium 136 mmol/L (136-145)
[2019-11-15 19:44] LABS: MDiff Complete? YES; Macrocytosis SLIGHT = 6-15 cells (100X) (0-5/hpf); Platelet Morphology Comment Appears Adequate
[2019-11-15] MEDS ORDERED: Ondansetron PF 4 MG/2 ML Vial IVP PRN (22:23)
[2019-11-15] MEDS ORDERED: Acetaminophen 325 MG TAB PO PRN (22:23)
[2019-11-15] MEDS ORDERED: Ondansetron ODT 4 MG TAB SL PRN (22:23)
[2019-11-15 23:07] VITALS: BMI 26.9
[2019-11-16] MEDS ORDERED: hydrALAZINE 20 MG/ML VIAL SLOW IVP PRN (01:31)
[2019-11-16] MEDS ORDERED: Hydrocortisone 1% Cream 30 GM TUBE TOP PRN (01:31)
[2019-11-16] MEDS ORDERED: Acetaminophen 500 MG TAB PO PRN (01:31)
[2019-11-16] MEDS ORDERED: Ondansetron ODT 4 MG TAB PO PRN (01:31)
[2019-11-16] MEDS ORDERED: Triamcinolone 0.5 % Ointment 15 Gram Tube TOP PRN (01:31)
[2019-11-16] MEDS ORDERED: Ondansetron PF 4 MG/2 ML Vial IVP PRN (01:31)
[2019-11-16] MEDS: Sodium Chloride 0.9% 1,000 ML IV SCH ×2 (03:29→11:45)
--- NOTE | 2019-11-16 03:39 | HP ---
PRIMARY CARE PROVIDER: Dr. Jeff Thakur. PRIMARY FAST FOOD SALES ASSISTANT: Dr. Rudy Ovalle. CHIEF COMPLAINT: Abnormal labs. HISTORY OF PRESENT ILLNESS: This is an 89-year-old male, who was referred by Dr. Ovalle's office after a potassium was noted at 6.2 on screening laboratory analysis. The patient denied any specific fever, chills, general weakness, chest pain, or shortness of breath. The patient states he essentially had no symptoms and underwent the screening lab test due to a medication that he takes including lisinopril and Lasix. The patient denied any new medications, but states that Dr. Ovalle was considering taking him off lisinopril due to the acute kidney injury noted on metabolic screening. The patient denied any change to bowel habits, nausea, vomiting, or dysuria. In the emergency room, the patient underwent repeat metabolic screening showing a potassium of 5.8 with elevated creatinine of 1.67 and estimated GFR of 39. The patient received intravenous normal saline x500 mL and was referred to the Hospitalist Service for further evaluation. PAST MEDICAL HISTORY: 1. Obstructive sleep apnea. 2. Gastroesophageal reflux disease. 3. Restless legs syndrome. 4. Right-sided breast cancer. PAST SURGICAL HISTORY: 1. Status post right mastectomy. 2. Status post transurethral resection of the prostate. 3. Status post appendectomy. 4. Status post cholecystectomy. 5. Status post coronary artery bypass grafting. CURRENT MEDICATIONS: 1. Lipitor 20 mg p.o. at bedtime. 2. Lasix 20 mg p.o. q.48 hours p.r.n. 3. Isosorbide mononitrate 25 mg p.o. daily. 4. Lisinopril 5 mg p.o. daily. 5. Melatonin 10 mg p.o. at bedtime. 6. Metoprolol tartrate 50 mg p.o. b.i.d. 7. Mirapex 1.5 mg p.o. at bedtime. 8. Ranexa 1000 mg p.o. b.i.d. 9. Enteric-coated aspirin 325 mg p.o. daily. 10. Alclometasone 1 application p.r.n. 11. Fluocinolone 1 application b.i.d. p.r.n. ALLERGIES: TO MYCINS. FAMILY HISTORY: No inheritable diseases per patient report. SOCIAL HISTORY: Resides in [place], [place]. . No current alcohol, tobacco, or illicit drug use. REVIEW OF SYSTEMS: CONSTITUTIONAL: Negative for weight loss or gain, ability to conduct usual activities. SKIN: Negative for rash, itching. EYES: Negative for double vision, pain. ENT/MOUTH: Negative for nose bleeding, neck stiffness, pain, tenderness. CARDIOVASCULAR: Negative for palpitations, dyspnea on exertion, orthopnea. RESPIRATORY: Negative for shortness of breath, wheezing, cough, hemoptysis, fever or night sweats. GASTROINTESTINAL: Negative for poor appetite, abdominal pain, heartburn, nausea, vomiting, constipation, or diarrhea. GENITOURINARY: Negative for urgency, frequency, dysuria, nocturia. MUSCULOSKELETAL: Negative for pain, swelling. NEUROLOGIC/PSYCHIATRIC: Negative for anxiety, depression. ALLERGY/IMMUNOLOGIC: Negative for skin rash, bleeding tendency. Otherwise negative except as stated per HPI. PHYSICAL EXAMINATION: VITAL SIGNS: Blood pressure 162/68, pulse 66, respiratory rate 20, temperature 97.6 degrees Fahrenheit, O2 saturation 95% on room air. GENERAL APPEARANCE: This is an 89-year-old male, alert and oriented x3, pleasant, responsive, in no acute distress. HEENT: Pupils are equal, round, reactive to light and accommodation. Extraocular muscles are intact. No scleral icterus. No conjunctival injection. Nares patent. OP is clear. Teeth in good repair. NECK: Supple. No cervical adenopathy. No thyromegaly. No carotid bruits. No JVD appreciated. Cervical spine with full active and passive range of motion. CHEST: Lungs are clear to auscultation bilaterally. CARDIOVASCULAR EXAM: S1, S2 without noted murmur, rub, or gallop. ABDOMEN: Rounded, soft, nontender, and nondistended. Bowel sounds are positive in all 4 quadrants. There is no hepatosplenomegaly. No abdominal bruits, no rebound or guarding appreciated. EXTREMITIES: Warm and dry with fair turgor. No clubbing, cyanosis, or asymmetric edema appreciated. Pulses palpable distally at the dorsalis pedis, posterior tibial, and popliteal arteries bilaterally. Capillary refill less than 2 seconds. NEUROLOGIC: Cranial nerves 2 through 12 are grossly intact. No focal or lateralizing signs appreciated. PERTINENT LABORATORY AND X-RAY FINDINGS: Sodium 136, potassium 5.8, chloride 108, CO2 of 20, BUN 52, creatinine 1.67. Previously 1.70 on 11/12/2019, estimated GFR of 39, glucose 128, calcium 8.5. Troponin I negative x1. CBC showed a white blood cell count of 4.6, hemoglobin 10.4, hematocrit 31, MCV 107, platelet count 159 with normal differential. EKG dated 11/15/2019, by my interpretation shows sinus mechanism with heart rates in the 60s. Normal R-wave progression noted in the precordial leads. Left axis deviation noted. No acute ST-T wave changes appreciated. ASSESSMENT/PLAN: 1. Acute kidney injury. Suspect iatrogenic in the context of lisinopril with Lasix. Suspect also a component of dehydration. We will initiate intravenous normal saline at 100 mL/hour. Avoid nephrotoxic agents and limit contrast exposure. Hold Lasix and lisinopril. Repeat creatinine in the a.m. 2. Hyperkalemia. Suspect secondarily to #1. Continue IV fluids as outlined previously and repeat potassium level in the a.m. 3. Chronic macrocytic anemia. No current evidence to suggest acute blood loss. Check B12 and folate level in the a.m. and repeat CBC. 4. Coronary artery disease, chronic and stable. 5. Resume home medication regimen and monitor clinically. 6. Hypertension. Resume home blood pressure regimen and monitor clinical response. 7. Prophylaxis. Sequential compression devices, while in bed. Pepcid 20 mg p.o. b.i.d. CODE STATUS: Full. Surrogate medical decision maker is patient's spouse. Job ID: [id number]
[2019-11-16 05:24] LABS: #Eosinphils 0.1 thou/uL (0.0-0.7); #Lymphocytes 1.1 thou/uL (1.20-3.40); #Monocytes 0.4 thou/uL (0.11-0.59); #Neutrophils 2.9 thou/uL (1.40-6.50); %Basophils 0.9 % (0.0-1.0); %Eosinophils 1.3 % (0.0-10.0); %Lymphocytes 24.7 % (21.0-51.0); %Monocytes 9.3 % (0.0-10.0); %Neutrophils 63.8 % (42.0-75.0); Hemoglobin 10.4 g/dL (14.0-18.0); Mean Corpuscular Hemoglobin 35.2 pg (27.0-31.0); Mean Platelet Volume 7.9 fL (7.4-10.4); Platelet Count 151 thou/uL (130-400); RBC Distribution Width 11.3 % (11.5-14.5); Red Blood Cell (RBC) Count 2.95 mill/uL (4.70-6.10); White Blood Cell (WBC) Count 4.6 thou/uL (4.8-10.8)
[2019-11-16 05:45] LABS: Anion Gap 12 mmol/L (10-20); BUN (Urea Nitrogen) 40 mg/dL (8.4-25.7); Calc. Creatinine Clearance 45 mL/min (70-130); Calcium 8.1 mg/dL (7.8-10.44); Carbon Dioxide 20 mmol/L (23-31); Chloride 110 mmol/L (98-107); Estimated GFR-MDRD 50; Glucose 83 mg/dL (83-110); Potassium 5.1 mmol/L (3.5-5.1); Sodium 137 mmol/L (136-145)
[2019-11-16] MEDS: Metoprolol Tartrate 50 MG TAB PO SCH ×2 (08:50→20:50)
[2019-11-16] MEDS: Saccharomyces boulardii 250 MG CAP PO SCH (08:50)
[2019-11-16] MEDS: Aspirin 325 mg Enteric Coated Tablet PO SCH (08:50)
[2019-11-16] MEDS: Famotidine 20 MG TAB PO SCH (08:50)
[2019-11-16 12:31] LABS: SARS-CoV-2 MS2 Positive; SARS-CoV-2 N Gene Negative; SARS-CoV-2 S Gene Negative; SARS-CoV-2 by NAA Not Detected (NotDetected); SARS-CoV-2 orf1ab Negative
[2019-11-16 15:38] LABS: Potassium 5.8 mmol/L (3.5-5.1)
--- NOTE | 2019-11-16 16:10 | PDOC.HOSPP ---
- Subjective Encounter Date: 11/16/19 Encounter Time: 16:08 Subjective: Mr. James was seen today in follow-up of hyperkalemia. He does not have any complaints. - Objective Vital Signs & Weight: Vital Signs (12 hours) Temp Pulse Resp BP Pulse Ox 11/16/19 11:36 97.5 F L 56 L 16 105/49 L 95 11/16/19 08:50 94 L 11/16/19 07:52 97.5 F L 55 L 16 162/64 H 94 L 11/16/19 05:14 97.6 F 60 17 144/64 H 95 Weight Weight 182 lb 4 oz I&O: 11/15/19 11/16/19 11/17/19 06:59 06:59 06:59 Intake Total 200 Balance 200 Result Diagrams: 11/16/19 05:14 11/16/19 15:16 Hospitalist ROS - Medication Medications: Active Medications Generic Name Dose Route Start Last Admin Trade Name Freq PRN Reason Stop Dose Admin Aspirin 325 mg 11/16/19 09:00 11/16/19 08:50 Ecotrin PO 325 mg DAILY OMAYRA Administration Famotidine 20 mg 11/16/19 09:00 11/16/19 08:50 Pepcid PO 20 mg 0900 OMAYRA Administration Isosorbide Mononitrate 30 mg 11/16/19 09:00 11/16/19 08:50 Imdur Er PO 30 mg DAILY OMAYRA Administration Metoprolol Tartrate 50 mg 11/16/19 09:00 11/16/19 08:50 Lopressor PO 50 mg BID OMAYRA Administration Ranolazine 1,000 mg 11/16/19 09:00 11/16/19 08:50 Ranexa PO 1,000 mg BID OMAYRA Administration Saccharomyces Boulardii 250 mg 11/16/19 09:00 11/16/19 08:50 Florastor PO 250 mg DAILY OMAYRA Administration - Exam Eye: PERRL, anicteric sclera Heart: RRR, no murmur, no gallops, no rubs, normal peripheral pulses Respiratory: CTAB, no wheezes, no rales, no ronchi, normal chest expansion Gastrointestinal: soft, non-tender, non-distended, normal bowel sounds, no palpable masses, no hepatomegaly Extremities: no cyanosis, 1+ LE edema (mild edema in the left lower extremity) Hosp A/P (1) Hyperkalemia Code(s): E87.5 - HYPERKALEMIA Status: Acute (2) Chronic kidney disease, stage 3 Code(s): N18.3 - CHRONIC KIDNEY DISEASE, STAGE 3 (MODERATE) Status: Acute (3) S/P CABG x 4 Status: Acute (4) CAD (coronary artery disease) Code(s): I25.10 - ATHSCL HEART DISEASE OF [place] CORONARY ARTERY W/O ANG PCTRS Status: Chronic (5) GERD (gastroesophageal reflux disease) Code(s): K21.9 - GASTRO-ESOPHAGEAL REFLUX DISEASE WITHOUT ESOPHAGITIS Status: Chronic - Plan * Hyperkalemia- Will place him on a low potassium diet. He is a bit acidotic, and will therefore consult Nephrology - possible RTA? * Give a dose of Kayexalate * Acute on chronic kidney disease- patient gives a history of BPH and previous TURP. He says he has noted that his stream has become less strong, and he has some dribbling- will check a post void residual and renal ultrasound to rule out obstruction * He is not stable for discharge , as his potassium has begun to rise again- will change his status to INpatient, and re-check the potassium level in the AM * CAD- stable- currently being evaluated by Dr. Ovalle as Outpatient
[2019-11-16] MEDS ORDERED: Sodium Bicarbonate 150 MEQ in Dextrose 5% in Water 1,000 ML IV SCH (16:15)
--- NOTE | 2019-11-16 17:57 | CON ---
DATE OF CONSULTATION: 11/16/2019 CONSULTING PHYSICIAN: Jim Darling MD REASON FOR CONSULTATION: Hyperkalemia. REASON FOR ADMISSION: Abnormal labs. HISTORY OF PRESENT ILLNESS: This is an 89-year-old male with history of obstructive sleep apnea, restless legs syndrome, who was sent to the hospital with abnormal labs. He was found to have potassium of 6.2 by the fan blade aligner, Dr. Ovalle. The patient initially got better, but again potassium was going up today, even though holding the lisinopril, so Nephrology is consulted. The patient has been having some fruits for diet and he was using potassium chloride . No fever or chills. No nausea or vomiting. No cramps. No chest pain or palpitation reported. PAST MEDICAL HISTORY: Positive for obstructive sleep apnea, GERD, restless legs syndrome, and right-sided breast cancer. PAST SURGICAL HISTORY: Right mastectomy, TURP, appendectomy, cholecystectomy, and coronary artery bypass graft. HOME MEDICATIONS: 1. Lipitor. 2. Lasix. 3. Isosorbide mononitrate. 4. Lisinopril. 5. Melatonin. 6. Metoprolol. 7. Mirapex. 8. Ranexa. 9. Aspirin. 10. Alclometasone. 11. Fluocinolone. ALLERGIES: TO MYCINS. FAMILY HISTORY: No history of any kidney disease. SOCIAL HISTORY: No smoking, alcohol, or illicit drug abuse. REVIEW OF SYSTEMS: CONSTITUTIONAL: Negative for weight loss or gain, ability to conduct usual activities. SKIN: Negative for rash, itching. EYES: Negative for double vision, pain. ENT/MOUTH: Negative for nose bleeding, neck stiffness, pain, tenderness. CARDIOVASCULAR: Negative for palpitations, dyspnea on exertion, orthopnea. RESPIRATORY: Negative for shortness of breath, wheezing, cough, hemoptysis, fever or night sweats. GASTROINTESTINAL: Negative for poor appetite, abdominal pain, heartburn, nausea, vomiting, constipation, or diarrhea. GENITOURINARY: Negative for urgency, frequency, dysuria, nocturia. MUSCULOSKELETAL: Negative for pain, swelling. NEUROLOGIC/PSYCHIATRIC: Negative for anxiety, depression. ALLERGY/IMMUNOLOGIC: Negative for skin rash, bleeding tendency. PHYSICAL EXAMINATION: GENERAL: This is a well-built male, in no apparent distress. VITAL SIGNS: Temperature 97.5, pulse 56, respiratory rate 18, and blood pressure 105/49. HEENT: Atraumatic, normocephalic. Oral mucosa moist. NECK: Supple. CV: S1 and S2. Rate and rhythm regular. RESPIRATORY: Clear. GASTROINTESTINAL: Abdomen is soft. MUSCULOSKELETAL: No tenderness. No edema. DERMATOLOGIC: No skin rash. NEUROLOGIC: Alert and awake. PSYCHIATRIC: Mood and affect normal. LABORATORY DATA: Hemoglobin is 10.5. Potassium 5.8, BUN is 40, and creatinine is 1.34. ASSESSMENT AND PLAN: 1. Acute kidney injury. 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 2. Hyperkalemia, better. We will limit potassium intake and stop lisinopril. We will start on bicarb drip and also agree with Kayexalate. The patient is also complaining of urinary retention. We will check a renal ultrasound, might have to add Doppler also . 3. Acidosis. We will start bicarb drip. 4. The patient advised to limit potassium intake. 5. Anemia of chronic disease. 6. History of hypertension. Monitor potassium closely. Limit potassium intake. Hold lisinopril. Bicarb drip for a liter and to check renal ultrasound with Doppler if possible. Thank you for the consult. We will follow the case along with you. Job ID: [id number]
[2019-11-16] MEDS ORDERED: Pramipexole Di-HCl 1 MG TAB PO SCH (21:00)
[2019-11-16] MEDS ORDERED: Melatonin 3 MG TAB PO SCH (21:00)
[2019-11-16] MEDS ORDERED: Atorvastatin Calcium 20 MG TAB PO SCH (21:00)
[2019-11-17 06:44] LABS: Anion Gap 11 mmol/L (10-20); BUN (Urea Nitrogen) 27 mg/dL (8.4-25.7); Calc. Creatinine Clearance 56 mL/min (70-130); Carbon Dioxide 24 mmol/L (23-31); Chloride 106 mmol/L (98-107); Estimated GFR-MDRD 65; Glucose 91 mg/dL (83-110); Potassium 4.5 mmol/L (3.5-5.1); Sodium 136 mmol/L (136-145)
[2019-11-17] MEDS: Famotidine 20 MG TAB PO SCH (08:37)
[2019-11-17] MEDS: Saccharomyces boulardii 250 MG CAP PO SCH (08:37)
[2019-11-17] MEDS: Metoprolol Tartrate 50 MG TAB PO SCH (08:37)
[2019-11-17] MEDS: Aspirin 325 mg Enteric Coated Tablet PO SCH (08:37)
--- NOTE | 2019-11-17 08:55 | ULT ---
BILATERAL RENAL ULTRASOUND WITH SPENCER SCALE AND COLOR FLOW AND SPECTRAL DOPPLER IMAGING: Date: 11/17/2019 HISTORY: BPH and acute renal failure. FINDINGS: The right kidney measures 13.4 cm in length and the left kidney measures 12.9 cm in length. No hydron ephrosis seen on either side. There are multiple cysts in the right kidneys, the largest measuring ab out 9.0 cm. There is a 1.8 cm cyst in the inferior left kidney. The peak systolic velocity in the right renal artery measures 124 cm/second with a renal artery/aorti c ratio of 1.74. The left renal artery is not visualized due to bowel gas. The resistive index on the right is 0.63 and on the left is 0.61. IMPRESSION: Bilateral renal cysts. No evidence of high grade obstruction. POS: OFF
[2019-11-17 11:20] VITALS: BP 103/52; TEMP 97.4
--- NOTE | 2019-11-17 12:08 | PDOC.HOSPP ---
- Subjective Encounter Date: 11/17/19 Encounter Time: 12:07 Subjective: Mr. James was seen today in follow-up. No complaints. - Objective Vital Signs & Weight: Vital Signs (12 hours) Temp Pulse Resp BP Pulse Ox 11/17/19 11:18 97.4 F L 51 L 16 103/52 L 95 11/17/19 08:00 94 L 11/17/19 07:19 97.6 F 52 L 18 146/62 H 94 L 11/17/19 00:37 97.6 F 59 L 17 154/65 H 97 Weight Weight 182 lb 4 oz I&O: 11/16/19 11/17/19 11/18/19 06:59 06:59 06:59 Intake Total 200 800 360 Output Total 2024 Balance 200 -1225 360 Result Diagrams: 11/16/19 05:14 11/17/19 06:10 Hospitalist ROS - Medication Medications: Active Medications Generic Name Dose Route Start Last Admin Trade Name Freq PRN Reason Stop Dose Admin Aspirin 325 mg 11/16/19 09:00 11/17/19 08:37 Ecotrin PO 325 mg DAILY OMAYRA Administration Atorvastatin Calcium 20 mg 11/16/19 21:00 11/16/19 20:48 Lipitor PO 20 mg HS OMAYRA Administration Famotidine 20 mg 11/16/19 09:00 11/17/19 08:37 Pepcid PO 20 mg 0900 OMAYRA Administration Isosorbide Mononitrate 30 mg 11/16/19 09:00 11/17/19 08:37 Imdur Er PO 30 mg DAILY OMAYRA Administration Melatonin 9 mg 11/16/19 21:00 11/16/19 20:49 Melatonin PO 9 mg HS OMAYRA Administration Metoprolol Tartrate 50 mg 11/16/19 09:00 11/17/19 08:37 Lopressor PO 50 mg BID OMAYRA Administration Pramipexole Dihydrochloride 1.5 mg 11/16/19 21:00 11/16/19 20:48 Mirapex PO 1.5 mg QPM OMAYRA Administration Ranolazine 1,000 mg 11/16/19 09:00 11/17/19 08:37 Ranexa PO 1,000 mg BID OMAYRA Administration Saccharomyces Boulardii 250 mg 11/16/19 09:00 11/17/19 08:37 Florastor PO 250 mg DAILY OMAYRA Administration - Exam Eye: PERRL, anicteric sclera Heart: RRR, no murmur, no gallops, no rubs, normal peripheral pulses Respiratory: CTAB, no wheezes, no rales, no ronchi, normal chest expansion, no tachypnea, normal percussion Gastrointestinal: soft, non-tender, non-distended, normal bowel sounds, no palpable masses, no hepatomegaly Extremities: no cyanosis, no edema Hosp A/P (1) Hyperkalemia Code(s): E87.5 - HYPERKALEMIA Status: Acute (2) Chronic kidney disease, stage 3 Code(s): N18.3 - CHRONIC KIDNEY DISEASE, STAGE 3 (MODERATE) Status: Acute (3) S/P CABG x 4 Status: Acute (4) CAD (coronary artery disease) Code(s): I25.10 - ATHSCL HEART DISEASE OF [place] CORONARY ARTERY W/O ANG PCTRS Status: Chronic (5) GERD (gastroesophageal reflux disease) Code(s): K21.9 - GASTRO-ESOPHAGEAL REFLUX DISEASE WITHOUT ESOPHAGITIS Status: Chronic - Plan * Hyperkalemia- resolved * Renal ultrasound was reviewed * Stable for discharge home
--- NOTE | 2019-11-17 12:56 | PRG ---
DATE OF SERVICE: 11/17/2019 SUBJECTIVE: Patient was seen and examined at bedside and overnight events noted. Patient denies any shortness of breath or chest pain or palpitation. No history of nausea or vomiting or diarrhea or fever or chills or cramps. OBJECTIVE: GENERAL: This is a well-built male, in no apparent distress. VITAL SIGNS: Temperature 97.4. Heart Rate 51. Respiratory rate 16. Blood pressure 103/52. HEENT: Atraumatic, normocephalic. Oral mucosa is moist. Neck: Supple. Cardiovascular: S1, S2 heard. Rate and rhythm regular. Respiratory: Clear to auscultation. Gastrointestinal: Abdomen is soft. Musculoskeletal: No tenderness. No edema. Dermatologic: No skin rash. Neurologic: Alert and awake and oriented x3. No focal neurologic deficits. Moving all the extremities. Psychiatric: Mood and affect normal. LABORATORY DATA: Potassium 4.5, BUN is 27, creatinine is 1.07. ASSESSMENT AND PLAN: 1. Acute kidney injury, much better. 2. Hyperkalemia, better. Continue to limit potassium intake. 3. Acidosis, stable. 4. Anemia of chronic disease. 5. Hypotension. Bicarb drip stopped. Limit potassium intake. We will monitor. Continue to hold lisinopril. Job ID: [id number]
--- NOTE | 2019-11-18 00:51 | DIS ---
DATE OF ADMISSION: 11/16/2019 DATE OF DISCHARGE: 11/17/2019 PRIMARY CARE PHYSICIAN: Jeff Thakur MD DISCHARGE DISPOSITION: Home. DISCHARGE DIAGNOSES: 1. Hyperkalemia. 2. Acute kidney failure. 3. Obstructive sleep apnea. 4. Gastroesophageal reflux disease. 5. Restless legs syndrome. 6. History of right-sided breast cancer. 7. Benign prostatic hyperplasia. DISCHARGE MEDICATIONS: Include; 1. Aspirin 325 mg p.o. daily. 2. Ranexa 1000 mg b.i.d. 3. Mirapex 1.5 mg daily. 4. Lopressor 50 mg p.o. b.i.d. 5. Melatonin 10 mg at bedtime. 6. Isosorbide mononitrate 25 mg daily. 7. Fluocinolone one application twice a day. 8. Lipitor 20 mg p.o. at bedtime. 9. Alclometasone dipropionate 60 g daily. IMAGING DONE DURING HOSPITAL STAY: The patient had a renal ultrasound done showing bilateral renal cyst. There was no evidence of any high-grade stenosis. CODE STATUS: Full code. ALLERGIES: TO THE MYCINS. HOSPITAL COURSE: Mr. James is an 89-year-old gentleman, who was found to have hyperkalemia on routine lab screening. His potassium was 6.2. He was directly admitted to the hospital for management of this. He had been on lisinopril and Lasix, which was discontinued. However, his potassium remained high the following afternoon. After this reason, Nephrology was consulted. He was noted to be mildly acidotic and was placed on a bicarb drip by the lump inspector. He was placed on a low-potassium diet. Renal ultrasound was done to rule out obstructive uropathy given he has BPH and had some urinary symptoms. This proved to be negative and once his potassium was corrected, he was able to be discharged home. He is to have close outpatient followup with Dr. Chaidez with Nephrology. He is to be off lisinopril and Lasix. He has been asked to talk with Dr. Ovalle as to which would be the best replacement medication for the lisinopril and to follow up with his primary care physician in 1 to 2 weeks. Job ID: [id number]
== END 2019-11-17 14:01 | disposition home or self-care (01) | DRG 683 ==
LOC: ERS 18:37 → T4-B 20:42 → OBSVTOIN 11-16 15:48
PROVIDERS: ADMIT Family Medicine; ATTEND Family Medicine
DX: N17.9 Acute kidney failure, unspecified (principal); E87.2 Acidosis; E87.5 Hyperkalemia; G47.33 Obstructive sleep apnea (adult) (pediatric); Z20.828 Contact with and (suspected) exposure to other viral communicable diseases; N18.3 Chronic kidney disease, stage 3 (moderate); I25.10 Atherosclerotic heart disease of native coronary artery without angina pectoris; E86.0 Dehydration; K21.9 Gastro-esophageal reflux disease without esophagitis; G25.81 Restless legs syndrome; D63.1 Anemia in chronic kidney disease; I12.9 Hypertensive chronic kidney disease with stage 1 through stage 4 chronic kidney disease, or unspecified chronic kidney disease; I95.9 Hypotension, unspecified; Z95.1 Presence of aortocoronary bypass graft; Z90.49 Acquired absence of other specified parts of digestive tract; Z79.899 Other long term (current) drug therapy; Z85.3 Personal history of malignant neoplasm of breast
CPT/HCPCS: 36415; 36600; 76770; 80048; 80053; 82607; 82746; 84484; 85025; 87635; 93005; 93976; G0378; J7070; U0003

== ENCOUNTER 2021-01-16 09:19 | Outpatient (CLI) | payer MEDICARE, OTHER ==
[2021-01-16 10:41] LABS: Bilirubin Neg (Negative); Blood, Urine Negative (Negative); Clarity Clear (Clear); Glucose, Urine (Dipstick) Normal (Negative); Ketone, Urine Negative (Negative); Leukocyte Negative (Negative); Nitrite Negative (Negative); Protein, Urine (Dipstick) Negative (Neg-Trace); Urobilinogen Normal mg/dL (Less than 2)
[2021-01-16 10:45] LABS: Hemoglobin 9.9 g/dL (13.5-17.5); Mean Corpuscular HGB CONC 34.1 g/dL (32.0-36.0); Mean Corpuscular Hemoglobin 35.6 pg (27.0-33.0); Mean Corpuscular Volume 104.3 fl (81.2-95.1); Platelet Count 176 10x3/uL (150-450); RBC Distribution Width 12.7 % (11.5-14.5); Red Blood Cell (RBC) Count 2.78 10x6/uL (4.32-5.72); White Blood Cell (WBC) Count 4.7 10x3/uL (3.5-10.5)
[2021-01-16 11:35] LABS: Bacteria/HPF None Seen HPF (None Seen); RBC/HPF 0-3 HPF (0-3); Squamous Epithelial None Seen HPF (0-3); WBC/HPF None Seen HPF (0-3)
[2021-01-16 11:48] LABS: Anion Gap 11 mmol/L (10-20); BUN (Urea Nitrogen) 32 mg/dL (8.4-25.7); Calc. Creatinine Clearance 0 mL/min (70-130); Calcium 8.3 mg/dL (7.8-10.44); Carbon Dioxide 22 mmol/L (23-31); Chloride 108 mmol/L (98-107); Glucose 105 mg/dL (83-110); Sodium 137 mmol/L (136-145)
[2021-01-16 21:58] LABS: SARS-CoV-2 PCR by NAA Not Detected (NotDetected)
== END 2021-01-16 09:20 | disposition home or self-care (01) ==
LOC: LABBT 09:19
PROVIDERS: ATTEND Urology
DX: Z01.818 Encounter for other preprocedural examination (principal); N40.1 Benign prostatic hyperplasia with lower urinary tract symptoms; Z20.822 Contact with and (suspected) exposure to COVID-19
CPT/HCPCS: 80048; 81001; 85027; 87086; 93005; U0003; U0005; 93010